=== PATIENT | male | born 1970 | race Caucasian/White ===

== ENCOUNTER 2019-03-01 13:26 | Outpatient (CLI) ==
--- NOTE | 2019-03-01 15:16 | DI ---
EXAM: LEFT SHOULDER HISTORY: Left shoulder pain FINDINGS: Left shoulder three-view. No fracture or dislocation is seen. Glenohumeral joint is with in normal limits. There is moderate osteoarthritis of the AC joint. IMPRESSION: 1. Moderate osteoarthritis of the AC joint.
== END 2019-03-01 13:27 | disposition home or self-care (01) ==
LOC: RAD 13:26
PROVIDERS: ATTEND Internal Medicine
DX: M25.512 Pain in left shoulder (principal)